=== PATIENT | male | born 1995 | race Caucasian/White ===

== ENCOUNTER 2016-10-12 17:33 | Emergency (ER) | payer OTHER ==
[2016-10-12 17:39] VITALS: BP 126/78; PULSE 76; RESP 18; TEMP 98.2; O2SAT 97
--- NOTE | 2016-10-12 17:45 | EDPHY ---
H & P Time Seen by Provider: 10/12/16 17:37 HPI/ROS: CHIEF COMPLAINT: right hand pain HISTORY OF PRESENT ILLNESS: 21-year-old male who is left-hand dominant presents emergency department complaining of right hand pain. Patient punched a padded wall with his right hand while playing basketball today. Patient denies previous injury to this hand, no numbness or tingling to this hand. This happened 2 hours prior to arrival, he is taking 400 mg of ibuprofen and has had ice on his hand. He is concerned about pain and swelling. Pain is moderate nature, worse with movement, improved with ice. Smoking Status: Former smoker Physical Exam: GEN: Awake, alert, oriented, no acute distress RESP: nl resp effort MSK: Right hand with, ecchymosis and tenderness to palpation over MCP joint pinky and ring finger on the right hand, tenderness to distal metacarpals pinky and ring finger as well. Cap refill less than 2 seconds, sensation intact to light touch, 2+ radial pulses, no wrist pain, no snuffbox tenderness, no elbow pain. SKIN: No break in skin Constitutional: Initial Vital Signs Temperature (C) 36.8 C 10/12/16 17:38 Heart Rate 76 10/12/16 17:38 Respiratory Rate 18 10/12/16 17:38 Blood Pressure 126/78 H 10/12/16 17:38 O2 Sat (%) 97 10/12/16 17:38 O2 Delivery Mode Room Air Allergies/Adverse Reactions: No Known Allergies Allergy (Unverified 10/12/16 17:36) Home Medications: Medication Instructions Recorded Risperidone 10/12/16 MDM/Departure - MDM Diagnostics: Right hand x-ray independently reviewed by me- Impression: Unremarkable radiograph right hand. Dictated By: Aries Madison MD - Depart Disposition: Home, Routine, Self-Care Clinical Impression: Contusion of right hand Qualifiers: Encounter type: initial encounter Qualified Code(s): S60.221A - Contusion of right hand, initial encounter Condition: Good Instructions: Contusion in Adults (ED) Additional Instructions: Rest, ice, elevate, take 600 mg of ibuprofen every 8 hours with food for 3-5 days. Follow up with the hand doctor for symptoms that are not improving in the next 7-10 days. Return to the emergency department for any numbness or tingling to your hand, new symptoms or concerns. Referrals: Gerry Coe MD [Medical Doctor] - As per Instructions (Hand surgeon on-call)
== END 2016-10-12 18:50 | disposition home or self-care (01) ==
DX: S60.221A Contusion of right hand, initial encounter (principal); Z87.891 Personal history of nicotine dependence; X58.XXXA Exposure to other specified factors, initial encounter; Y93.67 Activity, basketball